=== PATIENT | male | born 1970 | race Caucasian/White ===

== ENCOUNTER → 2017-04-22 | Outpatient (CLI) | payer BC, OTHER ==
--- NOTE | 2017-04-22 16:45 | Diagnostic Imaging Report ---
EXAMINATION: Renal ultrasound. INDICATION: Chronic kidney disease. FINDINGS: The right kidney is 11.4 and the left kidney is 12.5 cm in length. There is no hydronephrosis or focal lesion. The urinary bladder appears unremarkable. IMPRESSION: Unremarkable exam. Dictated by: Dictated on workstation # [id number]
== END ==
LOC: RAD 15:00
PROVIDERS: ATTEND Internal Medicine Nephrology
DX: N18.3 Chronic kidney disease, stage 3 (moderate) (principal); R53.83 Other fatigue
CPT/HCPCS: 76770

== ENCOUNTER → 2018-06-07 | Outpatient (CLI) | payer BC, OTHER ==
[~2018-06-07] MED LIST: CATHETER FLUSH 10 ML SYR IV PRN
--- NOTE | 2018-06-07 15:35 | Diagnostic Imaging Report ---
HEPATOBILIARY SCAN DATE: June 07, 2018. INDICATION: 48-year-old male, abdominal pain. PROCEDURE: 5.02 mCi of Tc-99m Choletec was administered intravenously and serial anterior planar images over the liver and upper abdomen were obtained. FINDINGS: There is clearance of background activity by the liver indicating hepatocyte function. There is radiotracer excretion into the bile ducts with prompt filling of the gallbladder. There is extension of radiotracer into small bowel. There is no identified enterogastric reflux. Ensure was administered for calculation of gallbladder ejection fraction. Gallbladder ejection fraction was calculated to be 56%. IMPRESSION: 1. Unremarkable nuclear medicine HIDA scan. Specifically, no evidence of acute or chronic cholecystitis. Dictated by: Dictated on workstation # [id number]
== END ==
LOC: CARD 12:21
PROVIDERS: ATTEND Nurse Practitioner
DX: R10.13 Epigastric pain (principal); R10.33 Periumbilical pain; R19.4 Change in bowel habit; R19.7 Diarrhea, unspecified; K92.1 Melena; Z80.0 Family history of malignant neoplasm of digestive organs
CPT/HCPCS: 78227